=== PATIENT | male | born 1985 | race Caucasian/White ===

== ENCOUNTER 2019-08-05 15:34 | Emergency (ER) | payer OTHER, SELFPAY ==
--- NOTE | ~2019-08-05 | XR_ITS ---
EXAMINATION: XR chest 2V EXAM DATE: 08/05/2019 16:04 INDICATION: Cough. TECHNIQUE: Frontal and lateral projections of the chest obtained and reviewed. There is no prior jerad dy for comparison. FINDINGS: The lungs are clear. There are no pleural effusions. The cardiomediastinal silhouette is within normal limits. There is no pneumothorax suspected. Mild thoracic scoliosis. IMPRESSION: No acute cardiopulmonary findings. Reviewed, dictated and finalized at location [facility]
[2019-08-05 15:42] VITALS: BP 157/82; PULSE 85; RESP 16; TEMP 36.4; O2SAT 100
--- NOTE | 2019-08-05 15:59 | ED.URI ---
HPI - URI/Sore Throat General Chief Complaint: Upper Respiratory Infection Stated Complaint: FEVER/CHEST SORE/SOB S/P FLU B EXPOSURE Source: patient Mode of arrival: ambulatory Limitations: no limitations History of Present Illness HPI Narrative: 34-year-old male presents to urgent care with complaints of dry cough, chest congestion, chest tightness, intermittent shortness of breath, runny nose and nasal congestion for the past week. Patient reports that his kids were diagnosed with influenza B last week. Patient reports that last Saturday he started with fever, body aches and chills which have since resolved. Patient has not tried taking any [id number] medications for symptoms. Patient is a non-smoker. Patient denies recent travel. MD elicited complaint: cough, rhinorrhea and nasal congestion Onset (ago): week(s) (1) Consistency: constant Able to tolerate fluids by mouth: Yes Exacerbating factors: nothing Context: sick contacts Associated symptoms: nasal congestion and shortness of breath Related Data Allergies Allergy/AdvReac Type Severity Reaction Status Date / Time No Known Allergies Allergy Verified 12/05/13 11:38 Review of Systems Review of Systems: All systems reviewed & are unremarkable except as noted in HPI and below Constitutional: Constitutional: Denies chills, Denies fatigue, Denies fever(s) and Denies weakness ENT: Denies dizziness, Denies epistaxis, Reports nasal congestion and Denies sore throat Cardiovascular: Cardiovascular: Denies chest pain and Denies radiating jaw, neck or arm pain Respiratory: Respiratory: Denies chest congestion, Reports cough, Reports dyspnea and Denies wheezing Gastrointestinal: Gastrointestinal: Denies abdominal pain, Denies diarrhea, Denies nausea and Denies vomiting Integumentary/Breasts: Skin/Breast: Denies rash Neurologic: Denies dizziness [facility] Social History Social History (Updated 08/05/19 @ 16:01 by Lena Webb APN) Smoking status: Never smoker Exam Const: General: no acute distress Orientation/consciousness: patient oriented x3 Limitations: altered mental status HENMT: Head: normal to inspection Ears: external ears normal and TM's normal bilaterally General nose exam: Normal nares present Face and sinus: sinuses nontender Mouth: Yes Normal oral and palatal mucosa present and Yes moist mucous membranes Neck: Neck: normal visual inspection Resp: Effort & Inspection: normal respiratory effort, not labored and not tachypneic Auscultation: no crackles, no rales, no rhonchi, no wheezes and diminished lung sounds Other: Decreased lung sounds noted left lower lobe Cardio: Rate: regular rate Heart sounds: no murmurs Skin: General skin exam: normal color, no jaundice and no pallor Rashes: no rashes Neuro: General: patient oriented x3 and moves all extremities Extrem: General: normal to inspection Psych: Mental Status: mental status grossly normal Affect: normal affect Attitude: cooperative Course Vital Signs Vital signs: Vital Signs Temperature 36.4 C 08/05/19 15:42 Pulse Rate 85 08/05/19 15:42 Respiratory Rate 16 08/05/19 15:42 Blood Pressure 157/82 H 08/05/19 15:42 Pulse Oximetry 100 08/05/19 15:42 Temperature 36.4 C 08/05/19 15:42 Pulse Rate 85 08/05/19 15:42 Respiratory Rate 16 08/05/19 15:42 Blood Pressure 157/82 H 08/05/19 15:42 Pulse Oximetry 100 08/05/19 15:42 MDM - URI/Sore Throat MDM Narrative Medical decision making narrative: Chest x-ray results discussed with patient --patient denies history of scoliosis. Patient reports that he has not had a chest x-ray completed since childhood. Patient agrees to follow-up with his primary care provider to discuss this finding. CD of films given to patient at time of discharge. Patient agrees to take medications as prescribed. Patient agrees to proceed to the emergency room if symptoms worsen Imaging Data Radiologist's impression: NAD; mild thor
== END 2019-08-05 16:18 | disposition home or self-care (01) ==
PROVIDERS: Emergency Provider Nurse Practitioner Family
DX: J40 Bronchitis, not specified as acute or chronic (principal)
CPT/HCPCS: 71046; 99203; G0463

== ENCOUNTER 2020-03-13 16:56 | Emergency (ER) | payer OTHER, SELFPAY ==
[2020-03-13 17:01] VITALS: BP 161/78; PULSE 100; RESP 17; TEMP 36.5; O2SAT 99
--- NOTE | 2020-03-13 17:14 | ED.WOUNDLAC ---
HPI - Wound/Laceration General Chief Complaint: Wound/Laceration Stated Complaint: lac to ankle Time Seen by Provider: 03/13/20 16:59 Source: patient Mode of arrival: ambulatory Limitations: no limitations History of Present Illness HPI narrative: This is a 35-year-old male that presents the emergency department for laceration to right ankle sustained just prior to arrival. Reports he accidentally cut himself with a gambling box person. He is not up-to-date on tetanus. Bleeding is under control. Denies decreased range of motion or numbness. Related Data Home Medications Medication Instructions Recorded Confirmed No Home Medications 03/13/20 03/13/20 Allergies Allergy/AdvReac Type Severity Reaction Status Date / Time No Known Allergies Allergy Verified 03/13/20 17:04 Review of Systems Review of Systems: Narrative: CONSTITUTIONAL: Denies fever SKIN: Reports laceration All systems reviewed & are unremarkable except as noted in HPI and below PMFSH Social History Social History (Updated 03/13/20 @ 17:15 by Pooja Martin PA-C) Smoking status: Never smoker Substance use: never Gender identity (if verbalized by the patient): Male Exam Narrative: Exam Narrative: GENERAL: Well-appearing, well-nourished, and in no acute distress. HEAD: Normocephalic, atraumatic. EYES: EOMI. EXTREMITIES: Normal range of motion. No edema. 1 cm linear laceration that is superficial over the right medial malleolus, no active bleeding SKIN: Warm, dry, no rash. NEURO: No focal deficits. Alert and oriented x3. PSYCH: Normal mood and affect Course Vital Signs Vital signs: Vital Signs Temperature 97.7 F 03/13/20 17:01 Pulse Rate 100 03/13/20 17:01 Respiratory Rate 17 03/13/20 17:01 Blood Pressure 161/78 H 03/13/20 17:01 Pulse Oximetry 99 03/13/20 17:01 Temperature 97.7 F 03/13/20 17:01 Pulse Rate 100 03/13/20 17:01 Respiratory Rate 17 03/13/20 17:01 Blood Pressure 161/78 H 03/13/20 17:01 Pulse Oximetry 99 03/13/20 17:01 Procedures Laceration Laceration 1: Date: 03/13/20 Time: 17:16 Site: lower extremity Side (If applicable): right Size (cm): 1 Description: linear Pre-repair: irrigated ====== Skin Level ====== Skin layer closed with: steri strips ====== Subcutaneous Layer ====== ====== Muscle Layer ====== ====== Tendon Layer ====== MDM - Wound/Laceration MDM Narrative Medical decision making narrative: Patient presents the emergency department for laceration to right ankle sustained just prior to arrival. This laceration was fairly superficial so it was cleansed and closed with Steri-Strips. Patient was educated on wound care. He was updated on tetanus. He is to follow-up with primary care doctor. He was given warnings to return to the ER Critical Care Time Critical Care Time Critical Care Time: No Discharge Plan Discharge Clinical Impression: Laceration Patient Disposition: Home, Self-Care Condition: Stable Instructions: Laceration (ED) Additional Instructions: Return to the emergency department if you experience fever, redness or swelling of your wound, abnormal drainage from your wound, or any other symptoms that are concerning to you. Leave steri strips in place until they fall off. After you may clean the area daily with mild soap and water. Change your top bandage daily Follow-up with your primary care doctor for wound check Prescriptions: No Action No Home Medications RF: 0 Follow-up/Referrals: Rodrick,Dwayne Parmar MD [Primary Care Provider] - 1 Week
[2020-03-13] MEDS: TETANUS,DIPHTHERIA,AC PERTUSSIS ADULT (0.5 ML) BOOSTRIX IM (17:15)
== END 2020-03-13 17:34 | disposition home or self-care (01) ==
PROVIDERS: Emergency Provider Emergency Medicine; PCP Family Medicine Sports Medicine
DX: S91.011A Laceration without foreign body, right ankle, initial encounter (principal); Z23 Encounter for immunization; W27.0XXA Contact with workbench tool, initial encounter
CPT/HCPCS: 90471; 90715; 99282